=== PATIENT | male | born 1980 | race Caucasian/White ===

== ENCOUNTER 2018-03-01 11:36 | Emergency (ER) | payer BC, OTHER ==
[~2018-03-01] VITALS: Ht 182.9 cm; Wt 83.9 kg
[2018-03-01] MEDS ORDERED: HYDR-3972 PO (11:47)
[2018-03-01] MEDS ORDERED: IBUP-23 PO (11:47)
[2018-03-01] MEDS ORDERED: KETOROLAC TROMETHAMINE INJ 30 MG/ML VIAL ONE (12:15)
--- NOTE | 2018-03-01 12:29 | NUR ---
PT CAME IN WITH C/O TOOTH ABSCESS ON RIGHT SIDE OF FACE. SEEN BY MD FOR EVAL. CURRENTLY ON ABX TREATMENT. VSS. IV ACCESS STARTED. MEDICATED ORDERED. SAFETY AND COMFORT MEASURES PROVIDED. WILL MONITOR.
[2018-03-01] MEDS ORDERED: CLINDAMYCIN 600 MG in IV D5W 100 ML IV ONE (12:30)
[2018-03-01] MEDS ORDERED: IV NS 0.9% 500 ML BAG IV ONE (12:30)
[2018-03-01] MEDS ORDERED: KETOROLAC TROMETHAMINE INJ 30 MG/ML VIAL IV ONE (12:30)
--- NOTE | 2018-03-01 13:00 | NUR ---
IV removed. Catheter intact and site benign. Pressure and 4x4 applied to site. No bleeding noted.
--- NOTE | 2018-03-01 13:06 | NUR ---
Patient discharged to home in stable condition. Written and verbal after care instructions given. Patient verbalizes understanding of instruction.
[2018-03-01 13:07] VITALS: BP 124/84
== END 2018-03-01 13:08 | disposition home or self-care (01) ==
LOC: ER 11:44
DX: K04.7 Periapical abscess without sinus (principal)
CPT/HCPCS: 96365; 96375; 99284; A4606; J1885; J3490; J7040; J7060; Z7610